=== PATIENT | male | born 1960 | race Two or more races ===

== ENCOUNTER 2024-08-10 14:45 | Emergency (ER) | payer MEDICAID, SELFPAY ==
[2024-08-10 14:52] VITALS: PULSE 102; RESP 18; O2SAT 99; BMI 26.0
[2024-08-10 15:28] VITALS: BP 118/61; PULSE 100; RESP 18; TEMP 37.3; O2SAT 95
--- NOTE | 2024-08-10 15:45 | PD.EDEXREM ---
ED Extremity Problem RME/HPI General Chief complaint: Chest Pain Stated complaint: knee pain, homelessness, Time Seen by Provider: 08/10/24 15:15 Source: patient Arrival date/time: 08/10/24 14:45 This is a 64-year-old male who presents to the emergency department by EMS with no significant complaints patient states he was sleeping on the side of the road bystanders called ambulance and was transported here. He does report he has chronic knee osteoarthritis with mild knee pain however has no complaints. No fever, cough, shortness of breath, chest pain, chills, abdominal pain, diarrhea, dysuria, hematuria, hematochezia, melena, focal weakness, fall, blunt trauma, loss of consciousness, incontinence. Patient requesting sandwich to eat. Mode of arrival: ambulatory Limitations: no limitations Related Data Allergies Allergy/AdvReac Type Severity Reaction Status Date / Time No Known Allergies Allergy Verified 08/10/24 14:51 Review of Systems Review of Systems Systems Reviewed: All systems reviewed, normal except as documented Narrative Review of Systems: Gen: No fever, no chills, no weight loss EYES: No discharge, no visual changes, no pain HEENT: No ear pain, no congestion, no sore throat PULM: No shortness of breath, no cough, no congestion CV: No chest pain, no dyspnea on exertion, no palpitations GI: No nausea, no vomiting, no diarrhea, no pain, no constipation : No frequency, no urgency,? no dysuria Musc/skel: knee pain, no back pain Skin: No rash? ED Exam Narrative Physical exam: 64-year-old male disheveled appears to be homeless. Answering all questions General Limitations: Present no limitations General appearance: Present alert and in no apparent distress Head Head exam: Present atraumatic Eye Eye exam: Present normal appearance, PERRL and EOMI ENT ENT exam: Present normal exam, normal oropharynx and mucous membranes moist Neck Neck exam: Present normal inspection, full ROM and trachea midline Chest Chest inspection: Present normal inspection and symmetric chest wall rise Respiratory Respiratory exam: Present normal lung sounds bilaterally Cardiovascular Cardiovascular exam: Present regular rate, normal rhythm and normal heart sounds Abdominal Exam Abdominal exam: Present soft and normal bowel sounds Extremities Exam Extremities exam: Present normal inspection and full ROM Back Exam Back exam: Present normal inspection and full ROM Neurological Exam Neurological exam: Present alert, oriented X3 and CN II-XII intact Psychiatric Psychiatric exam: Present normal affect and normal mood Skin Skin exam: Present warm, dry, intact and normal color Course Quality Measures none Vital Signs Vital signs: Vital Signs Temperature 99.2 F 08/10/24 15:28 Pulse Rate 100 08/10/24 15:28 Respiratory Rate 18 08/10/24 15:28 Blood Pressure 118/61 08/10/24 15:28 Pulse Oximetry (%) 95 08/10/24 15:28 Oxygen Delivery Method Room Air 08/10/24 15:28 Extremity Problem Patient data External records reviewed:: [facility] previous records Clinical information provided by:: patient Social determinants that could affect healthcare access:: none Patient has the following chronic illnesses:: none How is presenting disease/condition affected by chronic disease/condition?: no chronic disease Evaluation data The following diagnostics were reviewed and interpreted by me:: other (specify) Lab and/or radiology exams considered but not ordered:: none Interpretation Summary: none Medications / Prescriptions Medications or Prescriptions considered but not ordered:: none Medication administrations:: none Consultations Consultation(s) initiated? (list below): No Diagnosis Extremity Problem Differential Diagnosis: other Most likely diagnosis given after review of the tests above:: Chronic knee pain Admission Indicated Admission indicated?: not indicated Admission Request Was there a request for admission?: No Disposition Plan Disposition Plan: Discharge Discharge Attestation Discharge Attestation: The patient and all family members were given an opportunity to ask questions and understood the discharge instructions. Discharge instructions specifically effects, indications for sooner follow up or return to the emergency department, and the expected course of current diagnosis. Patient condition: Stable Discharge Plan Plan Patient Disposition: HOME (Self Care) Problem List Clinical Impression: Chronic knee pain Patient/Caregiver Discharge Instructions Education Materials: ED Chronic Pain Additional Instructions: Please follow-up with your primary doctor or clinic Return to the emergency department this any worsening symptoms change in condition.. Print Language: Hungarian Stand Alone Forms: Nadege Award Info., Patient Portal Info Letter PA/ALLYN Supervising Physician DAVIDA/ALLYN Supervising Physician: Dr Jj
== END 2024-08-10 16:40 | disposition home or self-care (01) ==
PROVIDERS: Emergency Provider Emergency Medicine
DX: G89.29 Other chronic pain (principal); M25.569 Pain in unspecified knee; Z59.02 Unsheltered homelessness
CPT/HCPCS: 99281

== ENCOUNTER 2024-12-14 13:51 | Emergency (ER) | payer MEDICAID, SELFPAY ==
[2024-12-14 14:04] VITALS: BP 100/61; PULSE 81; RESP 18; TEMP 37.2; O2SAT 96
[2024-12-14 14:28] VITALS: PULSE 84; RESP 18; O2SAT 96; BMI 23.6
--- NOTE | 2024-12-14 14:57 | EDNOTE_ITS ---
<Statement entered by Ivy Casillas MD - 12/15/24 04:32> As co-signing physician, I was present and available for consult prn. I concur with the plan and care as documented by the midlevel provider. ED Psych RME/HPI General Chief Complaint: Psychiatric Symptoms Stated Complaint: MENTAL EVAL Time Seen by Provider: 12/14/24 14:55 Arrival date/time: 12/14/24 13:51 RME / HPI RME / HPI Narrative: 64-year-old male patient was brought in by law enforcement for 5150 hold. Apparently patient verbalized that he was drinking alcohol because he wanted to . He he also asking somebody to kill him. Patient also complained of chronic bilateral lower leg swelling. Several months. Denies any cough denies any shortness of breath. Patient denies any homicidal ideation denies any other complaints. Patient not taking any psych medication. Related Data Allergies Allergy/AdvReac Type Severity Reaction Status Date / Time No Known Allergies Allergy Verified 12/14/24 14:37 Review of Systems Review of Systems Narrative Review of Systems: Review of system reviewed and within normal limits except mentioned in HPI ED Exam Narrative Physical exam: VITAL SIGNS: Reviewed. GENERAL APPEARANCE: Alert and interactive, follows commands, no acute distress, HEAD AND FACE: Non-traumatic. ENT: PERRL, pink conjunctivitis, eyelid no trauma, Mucous membrane moist. NECK: Supple, nontender, no nuchal rigidity. CHEST: No tenderness, no crepitus, no paradoxical movement, no retractions. LUNGS: Clear, well ventilated, symmetric, no rales, no wheezing, no ronchi, no stridor, good breath sounds bilaterally. HEART: Regular rate, regular rhythm, no murmur, no gallops. ABDOMEN: Soft, positive bowel sounds, nondistended, no guarding, nontender, no rebound, no masses, RECTAL: Deferred. GENITAL: Deferred. NEUROLOGICAL: Gross motor function intact sensory function intact, Appropriate for age. MUSCULOSKELETAL: low back nontender, full range of motion. EXTREMITIES: Bilateral lower leg swelling, no redness, dorsalis pedis and posterior tibialis pulses +1 bilateral due to swelling. Nontender, full range of motion. SKIN: Color pink, dry, no rash, no lacerations, no abrasions, no contusions. LYMPHATICS: Deferred. Course Quality Measures none Orders Category Date Time Status EKG (ED ONLY) *Do not use* NOW Care 12/14/24 15:04 Completed EKG (ED Only) Stat Exams 12/14/24 15:04 Draft US venous doppler LE BI Stat Exams 12/14/24 15:06 Completed Alcohol, Blood Medical Stat Lab 12/14/24 15:06 Completed BNP [B-Type Natriuretic Peptide] Stat Lab 12/14/24 15:06 Completed CBC [CBC] Stat Lab 12/14/24 15:06 Completed CMP [Comprehensive Metabolic Panel] Stat Lab 12/14/24 15:06 Completed Drug Screen,Urine Stat Lab 12/14/24 16:51 Completed UA, C/S IF [Urinalysis, C/S if Indicated] Stat Lab 12/14/24 16:51 Completed Vital Signs Vital signs: Vital Signs Temperature 99 F 12/14/24 14:04 Pulse Rate 81 12/14/24 14:04 Respiratory Rate 18 12/14/24 14:04 Blood Pressure 100/61 12/14/24 14:04 Pulse Oximetry (%) 96 12/14/24 14:04 Oxygen Delivery Method Room Air 12/14/24 14:04 Psych MDM Narrative MDM Narrative:: 64-year-old male patient was brought in by law enforcement for 5150 hold. Royal arently patient verbalized that he was drinking alcohol because he wanted to try. He he also asking somebody to kill him. Patient denies any homicidal ideation denies any other complaints. Patient not taking any psych medication. Patient CBC showed hemoglobin 10.3 hematocrit 29.1 slightly anemic. Patient alcohol level today was noted to be 190.1. Total bili of 3.2 AST of 152. Ultrasound of the bilateral lower extremities negative for DVT. EKG showed normal sinus rhythm, ventricular rate of 89 bpm, no ST segment elevation or depression noted. Patient is medically cleared for crisis intervention. Care transferred to Dr Casillas for final disposition Patient data External records reviewed:: None Clinical information provided by:: patient Social determinants that could affect healthcare access:: alcohol use Patient has the following chronic illnesses:: Chronic alcoholism-,- -[id number]- How is presenting disease/condition affected by chronic disease/condition?: exacerbated by Evaluation data The following diagnostics were reviewed and interpreted by me:: lab results, radiology exam(s) and EKG tracing(s) Lab and/or radiology exams considered but not ordered:: None Interpretation Summary: See results MDM Medications / Prescriptions Medications or Prescriptions considered but not ordered:: None Medication administrations:: None Consultations Consultation(s) initiated? (list below): No Diagnosis Psych Differential Diagnosis: acute psychosis, suicidal ideation and acute anxiety Most likely diagnosis given after review of the tests above:: Chronic alcoholism Admission Indicated Admission indicated?: not indicated Admission Request Was there a request for admission?: No Disposition Plan Disposition Plan: other (specify) Discharge Plan Prescriptions/Referrals Referrals: No Primary/Family,Physician [Primary Care Provider] - In 1 week Problem List Clinical Impression: Suicidal ideation, Alcoholism, chronic Patient/Caregiver Discharge Instructions Print Language: Latvian
--- NOTE | 2024-12-14 15:04 | EKG_ITS ---
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
--- NOTE | 2024-12-14 15:06 | XR_ITS ---
Examination: Venous duplex lower extremity sonogram, bilateral. Date and time of exam: December 14, 2024, 1547 hours INDICATIONS: Bilateral leg swelling beginning 18 months ago Technique: Multiple sonographic images of the deep venous system have been obtained. B-mode/2-D grayscale imaging of vascular structures and Doppler spectral analysis (waveforms) and color performed Both legs are examined. Findings: Deep venous systems do not demonstrate abnormal echogenicity. All visualized deep veins exhibit compressibility. All visualized deep veins exhibit augmentation. Right popliteal cyst 7 cm Impression: Negative for deep vein thrombosis
--- NOTE | 2024-12-14 15:17 | PC.CC ---
Patient presents to the hospital on a 5150-Hold for Danger to Self by [place] Supervisor Assembly Zachery. It was reported that the patient is unhoused, and was found with an open container. Per Officer Zachery patient made suicidal statements and reported he wanted to , had a plan. Patient will have a mental health evaluation upon being medically cleared.
[2024-12-14 15:26] LABS: Basophils # (Auto) 0.1 Thou/mm3 (0.0-0.2); Basophils % (Auto) 1 % (0-2.5); Eosinophils # (Auto) 0.2 Thou/mm3 (0.0-0.5); Eosinophils % (Auto) 2 % (0-10); Hematocrit 29.1 % (41.0-53.0); Hemoglobin 10.3 g/dL (13.5-16.0); Immature Granulocytes % (Auto) 0 % (0-0); Immature Granulocytes Auto 0.02 Thou/mm3 (0.00-0.00); Lymphocytes # (Auto) 1.9 Thou/mm3 (1.0-4.8); Lymphocytes % (Auto) 27 % (10-50); Mean Corpuscular HGB Conc 35.4 g/dl (31.0-37.0); Mean Corpuscular Hemoglobin 39.2 pg (25.0-35.0); Mean Corpuscular Volume 111 fL (80-100); Monocytes # (Auto) 1.7 Thou/mm3 (0.0-0.8); Monocytes % (Auto) 23 % (0-12); Neutrophils # (Auto) 3.3 Thou/mm3 (1.8-7.7); Neutrophils % (Auto) 46 % (37-80); Nucleated Red Blood Cell # 0.03 Thou/mm3 (0.00-0.00); Nucleated Red Blood Cell % 0 /100 WBC (0); Platelet Count 181 Thou/mm3 (140-440); RDW Standard Deviation 62.6 fL (35.1-43.9); Red Blood Count 2.63 Miln/mm3 (4.50-5.90); White Blood Count 7.1 Thou/mm3 (3.8-10.6)
[2024-12-14 15:45] LABS: Alanine Aminotransferase 44 U/L (10-49); Alcohol, Blood Medical 190.5 mg/dL (0-10.0); Alkaline Phosphatase 98 U/L (46-116); Anion Gap 9 (7-16); Aspartate Amino Transferase 152 U/L (0-34); B-Type Natriuretic Peptide 225 pg/mL (0-100); BUN/Creatinine Ratio 8 Ratio (12-20); Bilirubin,Total 3.2 mg/dL (0.3-1.2); Blood Urea Nitrogen < 5 mg/dL (9-23); Calcium 8.2 mg/dL (8.3-10.6); Chloride 107 mMol/L (98-107); Creatinine (Component) 0.6 mg/dL (0.6-1.3); Estimated Creatinine Clearance 132.9 mL/min (>60); Globulin 2.9 gm/dL (2.3-3.5); Glucose 107 mg/dL (74-106); Osmolality,Calculated 282 (275-295); Potassium 3.7 mMol/L (3.4-5.1); Sodium 143 mMol/L (136-145); Total Protein 5.9 gm/dL (5.7-8.2); eGFR > 60 See Note
[2024-12-14 16:12] VITALS: BP 131/76; PULSE 91; RESP 16; TEMP 37.5; O2SAT 95
[2024-12-14 17:05] LABS: Collection Type, Urine Clean Catch
[2024-12-14 17:22] LABS: Amphetamine/Methamp Scrn,U Negative (Negative); Barbiturate Screen,Urine Negative (Negative); Benzodiazepines Screen,Urine Negative (Negative); Benzoylecgonine Screen, Ur Negative (Negative); Fentanyl Screen,Urine Negative (Negative); Opiate Screen,Urine Negative (Negative); THC Screen,Urine Negative (Negative)
[2024-12-14 17:24] LABS: Bacteria,Urine Rare; Bilirubin,Urine 1+ (Negative); Blood,Urine Negative (Negative); Clarity,Urine Hazy (Clear/Hazy); Color,Urine Drk-Yellow (Lt Yel-Yel); Culture Indicated,Urine Not Indicated; Glucose, Urine Negative (Negative); Hyaline Casts,Urine 1 /hpf (0-1); Ketones,Urine Negative (Negative); Leukocyte Esterase,Urine Negative (Negative); Nitrite,Urine Negative (Negative); Protein,Urine Negative (Neg - Trace); RBC,Urine 2 /hpf (0-3); Specific Gravity,Urine 1.021 (1.001-1.035); Squamous Epithelial Cell,Urine < 1 /hpf (0-5); Urobilinogen,Urine 12 mg/dL (0.0-1.0); WBC,Urine 1 /hpf (0-5)
[2024-12-14 18:05] VITALS: BP 129/75; PULSE 98; RESP 16; TEMP 37.4; O2SAT 96
[2024-12-14 19:42] VITALS: BP 128/73; PULSE 92; RESP 16; O2SAT 94
--- NOTE | 2024-12-14 19:43 | PC.NURSE ---
I WENT IN TO INTRODUCE MYSELF TO THE PT. PT IS SITTING UPRIGHT EATING AT THIS TIME. PT IS PLEASANT AND AWARE THAT HE WILL BE HERE THROUGH THE NIGHT. PT WAS PROVIDED WITH WARM BLANKETS.
[2024-12-14 21:48] VITALS: BP 120/65; PULSE 80; RESP 16; O2SAT 94
--- NOTE | 2024-12-14 23:27 | PD.EDADDENDU ---
Emergency Room Addendum Addendum Narrative: 2300: Care assumed from Nick Benítez NP (emergency provider). Past medical, surgical, social and family history reviewed. Vitals and home medications reviewed. Results and treatment plan discussed. They will assume the care of the patient at this time and will follow the patient, pending psych evaluation. Please refer to the emergency department record for history and examination. Patient was placed in observation for treatment and monitoring of psychiatric symptoms. Symptoms consist of suicidal ideation. Treatment plan includes psychiatric consult, reassessments, and possible placement into psychiatric facility. The patient had access and provided personal hygiene, shower, food, water, and daily medications. 0600: Patient pending psych evaluation in the morning. Signed-out to oncoming ED provider.
[2024-12-15 00:02] VITALS: BP 127/74; PULSE 78; RESP 14; O2SAT 94
[2024-12-15 03:00] VITALS: BP 128/75; PULSE 81; RESP 19; TEMP 37.2; O2SAT 98
[2024-12-15] MEDS: IBUPROFEN TAB 600 MG TABLET PO (03:07)
[2024-12-15 05:57] VITALS: BP 120/69; PULSE 82; RESP 16; TEMP 36.9; O2SAT 98
--- NOTE | 2024-12-15 06:57 | PD.EDADDENDU ---
Emergency Room Addendum Addendum Narrative: 0600: Care assumed from Dr. Casillas, the previous shift emergency physician. Past medical, surgical, social and family history reviewed. Vitals and home medications reviewed. I will assume the care of the patient at this time, pending mental health evaluation. The patient had been medically cleared by previous physician. The patient was placed in ED observation care at 0600 12/15/2024. While in ED observation the pt will have access to water, food, and personal hygiene. If the pt takes home medication(s), they will be continued in ED observation. Please refer to the emergency department record for history and examination from initial visit.?The following addendum documentation note is intended to reflect any pending information, findings, or radiology results not included in the patient?s initial chart. Patient was evaluated by ED clinical manager home care and rescinded the 5150 hold. State patient has a safety plan in place. Patient has remained stable through ED course. Observation ended at this time. Patient will be discharged home with outpatient follow up.
--- NOTE | 2024-12-15 07:30 | PC.NURSE ---
Received report from Belem BELTRAN and assumed care of patient. Patient sleeping in bed with no signs of distress. Awaiting mental / social science instructor evaltion.
--- NOTE | 2024-12-15 08:24 | PC.NURSE ---
information services manager at bedside evaluating patient.
[2024-12-15 10:18] VITALS: BP 117/65; PULSE 63; RESP 16; TEMP 36.7; O2SAT 94
--- NOTE | 2024-12-15 10:47 | PC.CC ---
Pt Salomon Leiva is a 64-year-old male brought in to ED by [employer] on a 5150 DTS hold. Automatic Transmission Mechanic met with pt to complete mental health assessment. Pt presents emotional (tears in eyes). Pt engaged with SW and sat up on gurney. Pt made direct eye contact as encounter progressed. Pt is noted to be alert and oriented to person, current place and year. Pt reports no hx of mental health. Pt denies previous 5150 holds. Pt placed in ED 18. Pt reports living at [facility] and is connected to all services provided at [facility]. ED Black Leather Buffer encountered Pt for mental health evaluation. ED Black Leather Buffer explained limits of confidentiality and Pt stated he understood. ED Black Leather Buffer used the following interventions: empathy, unconditional positive regard, Socratic dialogue including clarifying and probing questions. Pt was receptive and was able to disclosed having a difficult time with substance abuse and had recent relapse after penitentiary girlfriend and Pt ended relationship. ED Black Leather Buffer used C-SSRS to support process and assessed for SI/HI, self-harming behaviors, method, access to lethal means, plan/intent. Pt was responsive to mental health evaluation and denied plan/intent for SI/HI. Pt denied hx of non-suicidal self-injury. Pt denied audio/visual hallucinations. Pt states he does not want to and just felt sad due to both Mother and Brother passing away. Pt reported he does not want to kill self and has supports. Pt reported he is connected to [facility] and is receiving disability. Automatic Transmission Mechanic consulted with supervisor payroll MM and it was agreed to safety plan with Pt due to client denying SI/HI with no plan/intent and willing and wanting to safety plan. Pt was engaged and assessed as reliable in participation in safety planning and was in agreement. Automatic Transmission Mechanic provided Pt with MH and substance abuse resources.
--- NOTE | 2024-12-15 11:03 | PC.CC ---
Knitting Machine Fixer Head supported with setting up transportation for Pt. Knitting Machine Fixer Head provided Pt with bus pass due to Pt have a cart of belongings and unable to go in [employer].
== END 2024-12-15 10:32 | disposition home or self-care (01) ==
PROVIDERS: Nurse Practitioner Family; Emergency Provider Emergency Medicine
DX: R45.851 Suicidal ideations (principal); F10.20 Alcohol dependence, uncomplicated; M79.89 Other specified soft tissue disorders
CPT/HCPCS: 36415; 80053; 80307; 80320; 81001; 83880; 85025; 93005; 93970; 96127; 99284; A9270; G0480

== ENCOUNTER 2025-01-02 16:24 | Emergency (ER) | payer MEDICAID, SELFPAY ==
[2025-01-02 16:32] VITALS: BP 104/63; PULSE 75; RESP 18; TEMP 36.7; O2SAT 95
[2025-01-02 16:33] VITALS: BMI 26.3
--- NOTE | 2025-01-02 16:48 | PD.EDSUICD ---
ED Psych RME/HPI General Chief Complaint: Suicidal Stated Complaint: 5150 Time Seen by Provider: 01/02/25 16:39 Arrival date/time: 01/02/25 16:24 RME / HPI RME / HPI Narrative: 64-year-old male patient, with significant history of homelessness, alcohol abuse, came in for evaluation regarding voluntary 5150 hold. Apparently patient verbalized that he wanted to join his family sibling, by doing carbon monoxide poisoning. He told me that he does not own a car. Patient also complained of bilateral lower leg swelling, has been ongoing for several months. Currently not taking any medication. Related Data Allergies Allergy/AdvReac Type Severity Reaction Status Date / Time No Known Allergies Allergy Verified 12/14/24 14:37 Review of Systems Review of Systems Narrative Review of Systems: Review of system reviewed and within normal limits except mentioned in HPI ED Exam Narrative Physical exam: VITAL SIGNS: Reviewed. GENERAL APPEARANCE: Alert and interactive, follows commands, no acute distress, HEAD AND FACE: Non-traumatic. ENT: PERRL, pink conjunctivitis, eyelid no trauma, Mucous membrane moist. NECK: Supple, nontender, no nuchal rigidity. CHEST: No tenderness, no crepitus, no paradoxical movement, no retractions. LUNGS: Clear, well ventilated, symmetric, no rales, no wheezing, no ronchi, no stridor, good breath sounds bilaterally. HEART: Regular rate, regular rhythm, no murmur, no gallops. ABDOMEN: Soft, positive bowel sounds, nondistended, no guarding, nontender, no rebound, no masses, RECTAL: Deferred. GENITAL: Deferred. NEUROLOGICAL: Gross motor function intact sensory function intact, Appropriate for age. MUSCULOSKELETAL: low back nontender, full range of motion. EXTREMITIES: Bilateral lower extremity +2 edema, no redness noted no skin breakdown noted, nontender, full range of motion. SKIN: Color pink, dry, no rash, no lacerations, no abrasions, no contusions. LYMPHATICS: Deferred. Course Quality Measures none Orders Category Date Time Status Alcohol, Blood Medical Stat Lab 01/02/25 17:13 Completed CBC [CBC] Stat Lab 01/02/25 17:13 Completed CMP [Comprehensive Metabolic Panel] Stat Lab 01/02/25 17:13 Completed Drug Screen,Urine Stat Lab 01/02/25 17:14 Completed Furosemide [Lasix] Med 01/02/25 21:50 Once 40 mg PO X1 ONE Vital Signs Vital signs: Vital Signs Temperature 98.1 F 01/02/25 16:32 Pulse Rate 75 01/02/25 16:32 Respiratory Rate 18 01/02/25 16:32 Blood Pressure 104/63 01/02/25 16:32 Pulse Oximetry (%) 95 01/02/25 16:32 Oxygen Delivery Method Room Air 01/02/25 16:32 Psych MDM Narrative MDM Narrative:: 64-year-old male patient, with significant history of homelessness, alcohol abuse, came in for evaluation regarding voluntary 5150 hold. Apparently patient verbalized that he wanted to join his family sibling, by doing carbon monoxide poisoning. He told me that he does not own a car. Patient also complained of bilateral lower leg swelling, has been ongoing for several months. Currently not taking any medication. Patient's workup showed no leukocytosis, hemoglobin was noted to be a slight anemia 10.3 otherwise unremarkable. Total bili was noted to be 2.3, patient is alcoholic. Patient's alcohol level was noted to be 285.5. Patient is medically cleared for crisis intervention however crisis told me that they are going to see the patient once the alcohol level normalizes or going down. Care transferred to Dr Fair for final disposition, pending crisis intervention Patient data External records reviewed:: None Clinical information provided by:: patient Social determinants that could affect healthcare access:: alcohol use Patient has the following chronic illnesses:: Homelessness How is presenting disease/condition affected by chronic disease/condition?: exacerbated by Evaluation data The following diagnostics were reviewed and interpreted by me:: lab results Lab and/or radiology exams considered but not ordered:: none Interpretation Summary: See results [facility] Medications / Prescriptions Medications or Prescriptions considered but not ordered:: None Medication administrations:: None Consultations Consultation(s) initiated? (list below): No Diagnosis Psych Differential Diagnosis: acute psychosis, suicidal ideation, depression and drug-induced psychotic disorder Most likely diagnosis given after review of the tests above:: Suicidal ideation Admission Indicated Admission indicated?: not indicated Admission Request Was there a request for admission?: No Disposition Plan Disposition Plan: other (specify) (Pending crisis intervention and disposition) Discharge Plan Prescriptions/Referrals Referrals: No Primary/Family,Physician [Primary Care Provider] - In 1 week Problem List Clinical Impression: Suicidal ideation Patient/Caregiver Discharge Instructions Print Language: Samoan
[2025-01-02 17:20] LABS: Basophils # (Auto) 0.1 Thou/mm3 (0.0-0.2); Basophils % (Auto) 1 % (0-2.5); Eosinophils # (Auto) 0.3 Thou/mm3 (0.0-0.5); Eosinophils % (Auto) 6 % (0-10); Hematocrit 28.9 % (41.0-53.0); Hemoglobin 10.3 g/dL (13.5-16.0); Immature Granulocytes Auto 0.01 Thou/mm3 (0.00-0.00); Lymphocytes # (Auto) 2.1 Thou/mm3 (1.0-4.8); Lymphocytes % (Auto) 46 % (10-50); Mean Corpuscular HGB Conc 35.6 g/dl (31.0-37.0); Mean Corpuscular Hemoglobin 39.0 pg (25.0-35.0); Mean Corpuscular Volume 110 fL (80-100); Monocytes # (Auto) 0.6 Thou/mm3 (0.0-0.8); Monocytes % (Auto) 13 % (0-12); Neutrophils # (Auto) 1.5 Thou/mm3 (1.8-7.7); Neutrophils % (Auto) 34 % (37-80); Nucleated Red Blood Cell # 0.00 Thou/mm3 (0.00-0.00); Nucleated Red Blood Cell % 0 /100 WBC (0); Platelet Count 115 Thou/mm3 (140-440); RDW Standard Deviation 57.1 fL (35.1-43.9); Red Blood Count 2.64 Miln/mm3 (4.50-5.90); White Blood Count 4.6 Thou/mm3 (3.8-10.6)
[2025-01-02 17:38] LABS: Alanine Aminotransferase 22 U/L (10-49); Albumin, Serum 2.8 gm/dL (3.4-4.8); Albumin/Globulin Ratio 1.0 (1.2-2.2); Alcohol, Blood Medical 285.5 mg/dL (0-10.0); Alkaline Phosphatase 84 U/L (46-116); Anion Gap 10 (7-16); Aspartate Amino Transferase 89 U/L (0-34); BUN/Creatinine Ratio 12 Ratio (12-20); Bilirubin,Total 2.3 mg/dL (0.3-1.2); Blood Urea Nitrogen 6 mg/dL (9-23); Calcium 7.9 mg/dL (8.3-10.6); Calcium (Corrected) 8.9 mg/dL (8.5-10.1); Carbon Dioxide 25.2 mMol/L (20.0-31.0); Chloride 108 mMol/L (98-107); Creatinine (Component) 0.5 mg/dL (0.6-1.3); Estimated Creatinine Clearance 154.8 mL/min (>60); Globulin 2.9 gm/dL (2.3-3.5); Glucose 97 mg/dL (74-106); Osmolality,Calculated 282 (275-295); Potassium 3.8 mMol/L (3.4-5.1); Sodium 143 mMol/L (136-145); Total Protein 5.7 gm/dL (5.7-8.2); eGFR > 60 See Note
--- NOTE | 2025-01-02 17:46 | PC.CC ---
Patient was [facility] Manager Materials Management Иван voluntarily for making suicidal ideations. Patient is under the influence of alcohol. Patient will have a mental health evaluation upon being medically cleared and when able to engage in assessment.
[2025-01-02 17:48] LABS: Amphetamine/Methamp Scrn,U Negative (Negative); Barbiturate Screen,Urine Negative (Negative); Benzodiazepines Screen,Urine Negative (Negative); Benzoylecgonine Screen, Ur Negative (Negative); Fentanyl Screen,Urine Negative (Negative); Opiate Screen,Urine Negative (Negative); THC Screen,Urine Negative (Negative)
[2025-01-02 18:44] VITALS: BP 112/67; PULSE 82; RESP 17; TEMP 36.6; O2SAT 97
[2025-01-02 22:32] VITALS: BP 141/79; PULSE 68
--- NOTE | 2025-01-02 23:15 | PD.EDADDENDU ---
Emergency Room Addendum <Arabella Blanco - Last Filed: 01/03/25 02:59> Addendum Narrative: I took over the care from previous shift physician, Nick Benítez NP, at 11 PM on 01/02/25. See previous notes for complete H & P and ED course. Pending evaluation by our ED Cross Enterprise Integrator in the morning. I reviewed all diagnostic test results. My review of the gallbladder US report is NAD. My review of the CT abdomen pelvis report is NAD. At 6 AM on 01/03/2025, the care of the patient was transferred to Dr. Mullins. During my watch, the patient remained stable. <Flaquito Fair MD - Last Filed: 01/03/25 03:04> Addendum Narrative: I took over the care from Nick Benítez NP at 11 PM on 01/02/25. See previous notes for complete H & P and ED course. I reviewed all diagnostic test results. My review of the gallbladder US report is NAD. My review of the CT abdomen pelvis report is NAD. Blood and urine test remarkable for LFT elevation and serum alcohol 285.5. Diagnoses include suicidal ideation and alcohol intoxication. Oral Lasix ordered by Nick Benítez NP for severe leg edema. Ultrasound showed no DVT about 2 weeks ago. At 6 AM on 01/03/2025, the care of the patient was transferred to Dr. Mullins. Waiting for evaluation by our ED healthcare prof. During my watch, the patient remained stable.
--- NOTE | 2025-01-02 23:58 | XR_ITS ---
Examination: CT abdomen and pelvis without contrast. Coronal 3-D reconstructions. Sagittal 2-D reconstructions. Date and time of exam:January 03, 2025 0049 hours INDICATIONS: Abdominal pain beginning one year ago CTDI: vol (mGy): 6.81. DLP: (mGycm): 409. Technique: Axial images of the abdomen have been obtained, 3 mm slice thickness Intravenous contrast material has not been administered. Low dose protocols were performed. One or more of the following dose reduction techniques were used; automated exposure control, adjustment of the mA and/or KV according to patient size, use of iterative reconstruction technique. Findings: Liver is irregular in contour with diffuse fatty infiltration No definite gallstones Spleen is not visualized No pancreatic mass No renal or ureteral calculi, no hydronephrosis No bowel obstruction No pericecal inflammatory changes No diverticulitis Urinary bladder wall thickening up to 9 mm There is thickening of the wall of the rectosigmoid and rectum No significant prostatomegaly Grade 1 spondylolisthesis L5 on S1 with advanced degenerative disc disease at this level IMPRESSION: Primary hepatocellular disease, severe diffuse fatty infiltration throughout the liver No renal or ureteral calculi, no hydronephrosis No CT findings of appendicitis or bowel obstruction Nonspecific wall thickening involving the rectosigmoid and rectum, differential would include colitis, clinical correlation advised and follow-up recommended Urinary bladder wall thickening, differential would include cystitis
--- NOTE | 2025-01-03 00:05 | XR_ITS ---
Examination: Abdomen sonogram, Limited Date and time of exam: January 03, 2025, 0142 hours INDICATIONS: Right upper abdominal pain and tenderness this week Technique: Real-time tompkins scale transabdominal sonographic images of the upper abdomen obtained. Findings: Normal gallbladder, minimal gallbladder sludge Common bile duct 0.70 cm no stones Pancreas obscured by bowel gas. Liver 14.3 cm no liver lesions Normal hepatopedal portal venous flow Patent IVC IMPRESSION: Minimal gallbladder sludge, negative for cholelithiasis, negative for cholecystitis No common bile duct stones noted
[2025-01-03 00:27] LABS: Beta Hydroxybutyrate 0.1 mmol/L (<0.6)
[2025-01-03 00:46] LABS: Collection Type, Urine Clean Catch; Squamous Epithelial Cell,Urine 0 /hpf (0-5)
[2025-01-03 00:53] LABS: Bilirubin,Urine Negative (Negative); Blood,Urine Negative (Negative); Clarity,Urine Clear (Clear/Hazy); Color,Urine Colorless (Lt Yel-Yel); Culture Indicated,Urine Not Indicated; Glucose, Urine Negative (Negative); Ketones,Urine Negative (Negative); Leukocyte Esterase,Urine Negative (Negative); Nitrite,Urine Negative (Negative); PH,Urine 7.0 (5.0-7.0); Protein,Urine Negative (Neg - Trace); RBC,Urine < 1 /hpf (0-3); Specific Gravity,Urine 1.006 (1.001-1.035); Urobilinogen,Urine Negative mg/dL (0.0-1.0); WBC,Urine < 1 /hpf (0-5)
[2025-01-03 00:56] LABS: Partial Thromboplastin Time 30.4 Seconds (22.0-36.0)
[2025-01-03 00:57] LABS: B-Type Natriuretic Peptide 266 pg/mL (0-100)
[2025-01-03 00:58] LABS: Ammonia 38 uMol/L (11-32)
[2025-01-03 01:45] LABS: Acetaminophen < 2.0 mcg/mL (10.0-20.0); Amylase 70 U/L (30-118); Bilirubin,Direct 1.3 mg/dL (0.0-0.3); Free T4 (Free Thyroxine) 1.02 ng/dL (0.89-1.76); Lipase 27 U/L (12-53); Magnesium 1.6 mg/dL (1.6-2.6); Salicylate < 3.0 mg/dL; Thyroid Stimulating Hormone 9.10 uIU/mL (0.55-4.78)
--- NOTE | 2025-01-03 02:30 | PRELIM_ITS ---
CT scan of the abdomen and pelvis without intravenous contrast (axial sections with sagittal and coronal reformats) January 03, 2025 at 0049 hours Clinical History: Abdominal pain. Comparison: Correlated with the US gallbladder study performed today. Findings: Fatty infiltration of the liver is noted. The liver demonstrates mild surface nodularity. The spleen is not visualized, likely surgically absent. No evidence of renal/ureteric calculus or hydroureteronephrosis. The gallbladder, pancreas, kidneys and adrenals are unremarkable on this noncontrast study. There is mild wall thickening versus underdistention of the rectosigmoid colon; possibility of early/mild proctocolitis cannot be excluded. No evidence of bowel obstruction. The appendix is not visualized. There is no mesenteric or retroperitoneal adenopathy. The abdominal aorta demonstrates mild atheromatous calcification without evidence of aneurysm. The urinary bladder is partially distended and shows mild wall thickening; possibility of cystitis cannot be excluded. There is no free fluid or free air. Degenerative changes are identified in the spine. 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 There is grade I anterolisthesis of L5 over S1. Mild bibasilar dependent atelectasis is present. Please note that evaluation of soft tissue/vascular structures and bowel loops is limited due to absence of IV and oral contrast. Impression: 1. No evidence of acute pancreatitis. 2. Fatty infiltration of the liver and possible cirrhosis. 3. Mild wall thickening versus underdistention of the rectosigmoid colon; possibility of early/mild proctocolitis cannot be excluded. 4. Partially distended urinary bladder with mild wall thickening; possibility of cystitis cannot be excluded. 5. Other findings as described above. Suggest clinical correlation and follow up accordingly. Report Electronically Signed By: Dutch Tijerina 01/03/2025 2:30:01 AM [EST]
--- NOTE | 2025-01-03 02:53 | PRELIM_ITS ---
Gallbladder ultrasound. January 03, 2025 at 0142 hours Clinical history: Right upper quadrant tenderness. Comparison: Correlated with the prior CT study performed earlier today. Findings: The visualized liver demonstrates increased echogenicity without mass or ductal dilatation. No gallbladder calculus, wall thickening or pericholecystic fluid is identified. There is sludge in the gallbladder. The common duct is normal in caliber at 7 mm. No free fluid is demonstrated on the submitted images. The pancreas is not visualized due to bowel gas. The main portal vein is patent and demonstrates hepatopetal flow. Impression: Gallbladder sludge. No sonographic evidence of cholelithiasis, acute cholecystitis or biliary obstruction. Fatty liver. Suggest clinical correlation and follow up accordingly. Report Electronically Signed By: Dutch Tijerina 01/03/2025 2:53:14 AM [EST]
[2025-01-03 05:16] VITALS: BP 134/83; PULSE 60; RESP 18; TEMP 36.8; O2SAT 98
--- NOTE | 2025-01-03 06:20 | PD.EDADDENDU ---
Emergency Room Addendum Addendum Narrative: 0600: Care assumed from Dr. Fair, the previous shift emergency physician. Past medical, surgical, social and family history reviewed. Vitals and home medications reviewed. I will assume the care of the patient at this time, pending mental health evaluation after patient is medically cleared, currently alcohol intoxicated. Please refer to the emergency department record for history and examination from initial visit.? The patient was placed in ED observation care at 01/03/2025 at 0600 hours. The patient was placed in ED observation care pending mental health evaluation. The patients past medical history, social history, and family history were reviewed. The plan of care will include serial examinations. While in ED observation the patient will have access to water, food, and personal hygiene. If the patient takes home medication(s), they will be continued in ED observation. Physical exam by me shows patient under no acute distress at this time. 0730: Patient is medically cleared for psychiatric evaluation. 0800: Mental health cleared the patient. Safety plan in place. 0810: Patient discharged. ED observation care ended at 01/03/2025 at 0810 hours. Diagnoses: -Suicidal ideation -Alcohol abuse
--- NOTE | 2025-01-03 07:57 | PC.CC ---
Patient is a 64 year-old male was [facility] Director Of Exhibits due to patient making suicidal statements. Per Officer Иван, patient was asleep on the sidewalk, when he engaged with patient he reported he had drank a few beers and made statements of suicidal statement with no plan or intention. Laney made dpbu-[id number]-fbnx contact with patient to complete assessment. ASW introduced self, role, and reason for assessment. ASW disclosed limits of confidentiality as well. Patient appeared alert and oriented to self, place, and situation. Patient made appropriate eye contact with this commercial real estate underwriter. Patients mood appeared to euthymic throughout assessment, patient had good insight and judgement. No signs of delusions, paranoid or V/h. Patient reports he drinks daily and his drink of choice is beer. Patient reports he was resting on the sidewalk and the officer woke him up. Patient reports he does not recall making suicidal statements to the officer. Per patient, he has his brother?s grandchildren to live for and would not end his life. Patient reports he enjoys listening to music while he drinks. Patient reports he has been homeless for multiple years. Patient reports he has been homeless for multiple years and is able to ambulate independently and complete his own ADLs. Patient reports he is not connected to outpatient mental health history and would not like to be connected. At the time of encounter patient denied suicidal and homicidal ideations, visual and auditory hallucinations. Patient reports that when he was in High School he did attempt to end his life by OD on pills. Patient disclosed that 6-7 years ago he was placed on a 5150-hold instead of going to penitentiary as they gave him two choices. Patient?s [place] Screening score was Low-Risk. Upon clinical consultation with [facility], Stella Jeong patient does not meet criteria for 5150-hold. Patient will be provided with clean clothes and shoes and a meal. Patient also be provided with community resources guide. ASW provided patient with a meal, clean clothes, shoes and a [place] Community Resource Guide that includes information for shelters. ASW provided update to Dr. Mullins, image processing engineer Alicia, and bedside DEVIN Del Valle regarding patient not meeting criteria for 5150-hold.
[2025-01-03 08:01] VITALS: BP 123/79; PULSE 69; RESP 18; TEMP 36.4; O2SAT 97
== END 2025-01-03 08:25 | disposition home or self-care (01) ==
PROVIDERS: Emergency Medicine; Nurse Practitioner Family; Emergency Provider Family Medicine
DX: Z00.8 Encounter for other general examination (principal); R45.851 Suicidal ideations; F10.229 Alcohol dependence with intoxication, unspecified; Y90.8 Blood alcohol level of 240 mg/100 ml or more; R60.0 Localized edema; R10.11 Right upper quadrant pain; R79.89 Other specified abnormal findings of blood chemistry; Z59.00 Homelessness unspecified
CPT/HCPCS: 36415; 74176; 76705; 80053; 80307; 80320; 80329; 81001; 82010; 82140; 82150; 82248; 83690; 83735; 83880; 84439; 84443; 85025; 85730; 96127; 99284; A9270; G0480

== ENCOUNTER 2025-01-30 10:58 | Emergency (ER) | payer MEDICAID, SELFPAY ==
[2025-01-30 11:00] VITALS: BP 117/75; PULSE 85; RESP 18; TEMP 36.6; O2SAT 96; BMI 26.0
--- NOTE | 2025-01-30 11:52 | PD.EDPSYCH ---
ED Psych RME/HPI General Chief Complaint: Psychiatric Symptoms Stated Complaint: MENTAL EVALUATION Time Seen by Provider: 01/30/25 11:24 Arrival date/time: 01/30/25 10:58 RME / HPI RME / HPI Narrative: 64-year-old male patient with significant history of chronic alcoholism, mental disorder, homelessness, was brought in by EMS for suicidal ideation. Apparently patient was found on the street sleeping, and told the EMS that he wanted to join his loved ones who long time ago, by carbon monoxide poisoning. Patient admits of drinking alcohol on a daily basis. Denies any homicidality or. Denies any other complaints. Related Data Allergies Allergy/AdvReac Type Severity Reaction Status Date / Time No Known Allergies Allergy Verified 12/14/24 14:37 Review of Systems Review of Systems Narrative Review of Systems: Review of system reviewed and within normal limits except mentioned in HPI ED Exam Narrative Physical exam: VITAL SIGNS: Reviewed. GENERAL APPEARANCE: Alert and interactive, follows commands, no acute distress, unkept, HEAD AND FACE: Non-traumatic. ENT: PERRL, pink conjunctivitis, eyelid no trauma, Mucous membrane moist. NECK: Supple, nontender, no nuchal rigidity. CHEST: No tenderness, no crepitus, no paradoxical movement, no retractions. LUNGS: Clear, well ventilated, symmetric, no rales, no wheezing, no ronchi, no stridor, good breath sounds bilaterally. HEART: Regular rate, regular rhythm, no murmur, no gallops. ABDOMEN: Soft, positive bowel sounds, nondistended, no guarding, nontender, no rebound, no masses, RECTAL: Deferred. GENITAL: Deferred. NEUROLOGICAL: Gross motor function intact sensory function intact, Appropriate for age. MUSCULOSKELETAL: low back nontender, full range of motion. EXTREMITIES: Bilateral lower extremity +2 edema, nontender, full range of motion. SKIN: Color pink, dry, no rash, no lacerations, no abrasions, no contusions. LYMPHATICS: Deferred. Course Quality Measures none Orders Category Date Time Status Diet Regular Diet 01/30/25 Dinner Active Acetaminophen Stat Lab 01/30/25 12:25 Completed Alcohol, Blood Medical Stat Lab 01/30/25 12:25 Completed CBC Stat Lab 01/30/25 12:25 Completed CMP [Comprehensive Metabolic Panel] Stat Lab 01/30/25 12:25 Completed Drug Screen,Urine Stat Lab 01/30/25 13:23 Completed Magnesium Stat Lab 01/30/25 12:25 Completed Salicylate Stat Lab 01/30/25 12:25 Completed Urinalysis Stat Lab 01/30/25 13:23 Completed Ringers Lactated 1000 ml [Lactated Ringers] 1,000 ml Med 01/30/25 11:51 Discontinued IV 999 mls/hr Late Tray Request Routine Oth 01/30/25 17:25 Active Vital Signs Vital signs: Vital Signs Temperature 97.8 F 01/30/25 11:00 Pulse Rate 85 01/30/25 11:00 Respiratory Rate 18 01/30/25 11:00 Blood Pressure 117/75 01/30/25 11:00 Pulse Oximetry (%) 96 01/30/25 11:00 Oxygen Delivery Method Room Air 01/30/25 11:00 Psych MDM Narrative MDM Narrative:: 64-year-old male patient with significant history of chronic alcoholism, mental disorder, homelessness, was brought in by EMS for suicidal ideation. Apparently patient was found on the street sleeping, and told the EMS that he wanted to join his loved ones who long time ago, by carbon monoxide poisoning. Patient admits of drinking alcohol on a daily basis. Denies any homicidality or. Denies any other complaints. Patient's workup was significant for alcohol level of 249. Patient is alert and oriented x 3. Patient is cleared by psych for discharge. Patient ate dinner in the ED prior to discharge. Patient agrees to be discharged back to the streets. Patient data External records reviewed:: None Clinical information provided by:: patient Social determinants that could affect healthcare access:: alcohol use Patient has the following chronic illnesses:: Homelessness How is presenting disease/condition affected by chronic disease/condition?: exacerbated by Evaluation data The following diagnostics were reviewed and interpreted by me:: lab results Lab and/or radiology exams considered but not ordered:: None Interpretation Summary: See results in MDM. Medications / Prescriptions Medications or Prescriptions considered but not ordered:: None Medication administrations:: Medication Administration History Discontinued Medications Lactated Ringer's (Lactated Ringers) 1,000 mls @ 999 mls/hr IV .Q1H1M ONE Stop: 01/30/25 12:51 Last Infusion: 01/30/25 13:59 Dose: Infused Documented By: Admin: 01/30/25 12:06 Dose: 999 mls/hr Documented By: DO IV fluids Consultations Consultation(s) initiated? (list below): No Diagnosis Psych Differential Diagnosis: acute psychosis, chronic schizophrenia and suicidal ideation Most likely diagnosis given after review of the tests above:: Chronic alcoholism, homelessness Admission Indicated Admission indicated?: not indicated Admission Request Was there a request for admission?: No Disposition Plan Disposition Plan: Discharge Discharge Attestation Discharge Attestation: Patient condition: Stable Discharge Plan Plan Patient Disposition: HOME (Self Care) Discharge Disposition comment: Stable Prescriptions/Referrals Referrals: No Primary/Family,Physician [Primary Care Provider] - In 1 week Problem List Clinical Impression: Alcoholism, chronic, Homelessness Patient/Caregiver Discharge Instructions Discharge Activity: activity as tolerated Education Materials: Alcoholism: Getting Help Additional Instructions: Thank you for the opportunity for serving you today. You are stable for discharged . You are advised to: Follow-up with your PCP in 1 to 2 days Return to ED for worsening of symptoms Increase oral fluids Please stop abusing alcohol Print Language: Kyrgyz Stand Alone Forms: Nadege Award Info., Patient Portal Info Letter DAVIDA/ALLYN Supervising Physician DAVIDA/ALLYN Supervising Physician: MD Jayden
[2025-01-30] MEDS: RINGERS LACTATED 1000 ML 1,000 ML 999 ML IV (12:06)
[2025-01-30 12:40] LABS: Basophils # (Auto) 0.1 Thou/mm3 (0.0-0.2); Basophils % (Auto) 2 % (0-2.5); Eosinophils # (Auto) 0.1 Thou/mm3 (0.0-0.5); Eosinophils % (Auto) 1 % (0-10); Hematocrit 35.9 % (41.0-53.0); Hemoglobin 12.4 g/dL (13.5-16.0); Immature Granulocytes Auto 0.01 Thou/mm3 (0.00-0.00); Lymphocytes # (Auto) 1.2 Thou/mm3 (1.0-4.8); Lymphocytes % (Auto) 25 % (10-50); Mean Corpuscular HGB Conc 34.5 g/dl (31.0-37.0); Mean Corpuscular Hemoglobin 37.6 pg (25.0-35.0); Mean Corpuscular Volume 109 fL (80-100); Monocytes # (Auto) 1.2 Thou/mm3 (0.0-0.8); Monocytes % (Auto) 23 % (0-12); Neutrophils # (Auto) 2.5 Thou/mm3 (1.8-7.7); Neutrophils % (Auto) 49 % (37-80); Nucleated Red Blood Cell # 0.00 Thou/mm3 (0.00-0.00); Nucleated Red Blood Cell % 0 /100 WBC (0); Platelet Count 115 Thou/mm3 (140-440); RDW Standard Deviation 57.2 fL (35.1-43.9); Red Blood Count 3.30 Miln/mm3 (4.50-5.90); White Blood Count 5.0 Thou/mm3 (3.8-10.6)
[2025-01-30 13:04] LABS: Acetaminophen < 2.0 mcg/mL (10.0-20.0); Alanine Aminotransferase 25 U/L (10-49); Albumin, Serum 3.2 gm/dL (3.4-4.8); Albumin/Globulin Ratio 1.0 (1.2-2.2); Alcohol, Blood Medical 249.5 mg/dL (0-10.0); Alkaline Phosphatase 98 U/L (46-116); Anion Gap 14 (7-16); Aspartate Amino Transferase 144 U/L (0-34); BUN/Creatinine Ratio 8 Ratio (12-20); Bilirubin,Total 2.4 mg/dL (0.3-1.2); Blood Urea Nitrogen < 5 mg/dL (9-23); Calcium 8.6 mg/dL (8.3-10.6); Calcium (Corrected) 9.2 mg/dL (8.5-10.1); Carbon Dioxide 25.7 mMol/L (20.0-31.0); Chloride 103 mMol/L (98-107); Creatinine (Component) 0.6 mg/dL (0.6-1.3); Estimated Creatinine Clearance 129.0 mL/min (>60); Globulin 3.1 gm/dL (2.3-3.5); Glucose 111 mg/dL (74-106); Magnesium 1.9 mg/dL (1.6-2.6); Osmolality,Calculated 283 (275-295); Potassium 3.6 mMol/L (3.4-5.1); Salicylate < 3.0 mg/dL; Sodium 143 mMol/L (136-145); Total Protein 6.3 gm/dL (5.7-8.2); eGFR > 60 See Note
[2025-01-30 13:31] LABS: Collection Type, Urine Clean Catch
[2025-01-30 14:02] VITALS: BP 120/72; PULSE 75; RESP 17; TEMP 36.4; O2SAT 98
[2025-01-30 14:06] LABS: Amphetamine/Methamp Scrn,U Negative (Negative); Barbiturate Screen,Urine Negative (Negative); Benzodiazepines Screen,Urine Negative (Negative); Benzoylecgonine Screen, Ur Negative (Negative); Fentanyl Screen,Urine Negative (Negative); Opiate Screen,Urine Negative (Negative); THC Screen,Urine Negative (Negative)
[2025-01-30 14:10] LABS: Amorphous Crystals,Urine Present (Absent); Bacteria,Urine Rare; Bilirubin,Urine Negative (Negative); Blood,Urine Negative (Negative); Clarity,Urine Turbid (Clear/Hazy); Color,Urine Yellow (Lt Yel-Yel); Glucose, Urine Negative (Negative); Hyaline Casts,Urine 1 /hpf (0-1); Ketones,Urine Negative (Negative); Leukocyte Esterase,Urine Negative (Negative); Nitrite,Urine Negative (Negative); PH,Urine 5.5 (5.0-7.0); Protein,Urine Negative (Neg - Trace); RBC,Urine 2 /hpf (0-3); Specific Gravity,Urine 1.013 (1.001-1.035); Squamous Epithelial Cell,Urine < 1 /hpf (0-5); Urobilinogen,Urine 4.0 mg/dL (0.0-1.0); WBC,Urine 3 /hpf (0-5)
--- NOTE | 2025-01-30 14:55 | PC.CC ---
Patient will need mental health evaluation upon beiong medically cleared. Patient was BIB-PPD on a 5150-hold for Danger to Self.
[2025-01-30 16:17] VITALS: BP 127/70; PULSE 99; RESP 16; TEMP 36.4; O2SAT 97
--- NOTE | 2025-01-30 17:28 | PC.CC ---
Patient is a 64 year-old male was [facility] Communicable Disease Specialist due to patient making suicidal statements upon being woken up. Per Officer Kaiser, patient was asleep on the sidewalk, when he engaged with patient he reported making suicidal statement with plan of suffocating by Carbon Monoxide. Raman made bbel-qy-yffz contact with patient to complete assessment. ORDER CHECKER introduced self, role, and reason for assessment. ORDER CHECKER disclosed limits of confidentiality as well. Patient appeared alert and oriented to self, place, and situation. Patient made appropriate eye contact with this junior technical writer. Patients mood appeared to euthymic throughout assessment, patient had good insight and judgement. No signs of delusions, paranoid or V/h. Patient reports he drinks daily and his drink of choice is beer. Patient reports he was resting on the sidewalk and the officer woke him up. Patient stated he did make suicidal statements to the officer with plan of ending his life by using carbon monoxide but has no plan to end his life.. At the time of encounter patient is denying suicidal and homicidal ideations, visual and auditory hallucinations. Per patient, he has his brother's grandchildren to live for and would not end his life. Patient reports he is not connected to outpatient mental health history and would not like to be connected. Patient reports many years ago he did attempt suicide by OD of pills. Patient reports he has been homeless for multiple years and is able to ambulate independently and complete his own ADLs. Patient?s [place] Screening score was High Risk. Patient reports he is willing to safety plan and would [facility] locally. Upon clinical consultation with ORDER CHECKER, Liz Toribio patient does not meet criteria for 5150-hold. Patient will be provided with clean clothes and shoes and a meal. Patient also be provided with community resources guide and ride to the [facility]. Patient reports he does not have access to Carbon Monoxide, pills, and does not own a firearm. ORDER CHECKER provided patient with a meal, clean clothes, shoes and a [place] Community Resource Guide that includes information for shelters. ORDER CHECKER to arrange transportation for patient to the [facility]. ?
[2025-01-30 18:16] VITALS: BP 125/72; PULSE 99; RESP 18; TEMP 36.8; O2SAT 96
== END 2025-01-30 18:16 | disposition home or self-care (01) ==
PROVIDERS: Nurse Practitioner Family; Emergency Provider Family Medicine
DX: F10.20 Alcohol dependence, uncomplicated (principal); R45.851 Suicidal ideations; Z59.00 Homelessness unspecified
CPT/HCPCS: 36415; 80053; 80307; 80320; 80329; 81001; 83735; 85025; 96127; 96360; 96361; 99284; J7120; G0480

== ENCOUNTER 2025-04-22 18:12 | Emergency (ER) | payer MEDICAID, SELFPAY ==
[2025-04-22 18:15] VITALS: BP 107/55; PULSE 87; RESP 18; TEMP 37.1; O2SAT 95; BMI 25.3
[2025-04-22 18:26] VITALS: PULSE 92; RESP 16; O2SAT 99
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
[2025-04-22] MEDS: ACETAMINOPHEN 500 MG TABLET 1000 MG PO (20:29)
== END 2025-04-22 21:32 | disposition home or self-care (01) ==
PROVIDERS: Emergency Provider Emergency Medicine
DX: S70.02XA Contusion of left hip, initial encounter (principal); V89.2XXA Person injured in unspecified motor-vehicle accident, traffic, initial encounter
CPT/HCPCS: 73502; 99282; A9270